=== PATIENT | male | born 1960 | race Caucasian/White ===

== ENCOUNTER → 2025-08-03 13:40 | Outpatient (CLI) | payer OTHER, SELFPAY ==
[2025-08-03 14:40] LABS: Hematocrit 44.5 % (41-53); Hemoglobin 14.9 g/dL (13.5-17.5); Mean Corpuscular HGB Conc 33.5 % (30-36); Mean Corpuscular Hemoglobin 31.8 PG (26-34); Mean Corpuscular Volume 94.8 fL (80-100); Platelet Count 211 X10^3/uL (150-400)
[2025-08-03 15:00] LABS: Alanine Aminotransferase 23 IU/L (<50); Albumin 4.5 g/dL (3.5-5.0); Albumin Globulin Ratio 1.5 (1.0-2.8); Alkaline Phosphatase 63 U/L (38-126); Blood Urea Nitrogen 12 mg/dL (9-20); Calcium 9.1 mg/dL (8.4-10.2); Carbon Dioxide 23 mmol/L (22-32); Chloride 103 mmol/L (98-107); Cholesterol 244 mg/dL (140-199); Estimated Glomerular Filt Rate > 60 mL/min (>60); Globulin 3.0 g/dL (1.7-4.1); Glucose 86 mg/dL (70-99); HDL Cholesterol 86 mg/dL (40-60); HEMOLYSIS < 15 (0-50); Potassium 4.4 mmol/L (3.4-5.1); Sodium 135 mmol/L (137-145); Total Protein 7.5 g/dL (6.3-8.2); Triglycerides 86 mg/dL (35-150)
[2025-08-03 20:49] LABS: HIV 1 & 2 Ab/Ag 4th Gen Combo NEGATIVE (NEGATIVE); Hep C Virus Ab w/Reflex Quant NEGATIVE s/c (NEGATIVE)
== END ==
PROVIDERS: PCP Family Medicine; Referring Provider Family Medicine; Visit Provider Family Medicine
DX: Z00.00 Encounter for general adult medical examination without abnormal findings (principal); Z13.220 Encounter for screening for lipoid disorders; Z82.49 Family history of ischemic heart disease and other diseases of the circulatory system; Z11.59 Encounter for screening for other viral diseases; E87.8 Other disorders of electrolyte and fluid balance, not elsewhere classified; Z11.4 Encounter for screening for human immunodeficiency virus [HIV]; Z12.5 Encounter for screening for malignant neoplasm of prostate
CPT/HCPCS: 36415; 80053; 80061; 82172; 83695; 85027; 86803; 87389; G0103

== ENCOUNTER 2025-10-17 06:28 | Day surgery (SDC) | payer OTHER, SELFPAY ==
[2025-10-10 10:56] VITALS: BMI 26.8
[2025-10-17] VITALS (8 sets, daily range): BP systolic 122–138; BP diastolic 63–90; PULSE 73–88; RESP 13–18; TEMP 36.1–36.5; O2SAT 94–96
--- NOTE | 2025-10-17 06:34 | P.HP_ITS ---
History of Present Illness History of Present Illness Date Patient Seen: 10/17/25 Chief complaint: Hernia Repair Narrative: Patient presents for ventral hernia repair today. [facility] Family History (Updated 08/03/25 @ 08:41 by Billy Kuhn MD) Father Heart attack Heart disease Grandfather Heart disease Social History marital status: household members: spouse lives independently: Yes Smoking Status: Never smoker alcohol intake: current (6-8 weekly) substance use type: does not use Meds Home Medications and Allergies Home Medications ?Medication ?Instructions ?Recorded ?Confirmed ?Type tadalafil 10 mg tablet 10 mg PO DAILY PRN sexual ac tivity 08/03/25 08/21/25 Rx #30 tabs Allergies Allergy/AdvReac Type Severity Reaction Status Date / Time No Known Drug Allergies Allergy Verified 08/21/25 08:17 Exam Narrative Exam Narrative: Const General: healthy appearing, comfortable and no acute distress Orientation: alert and oriented x3 HENMT Ears: hearing grossly normal bilaterally Eyes Visual Santiago: normal visual santiago by confrontation Conjunctivae: conjunctivae normal Sclera: sclerae normal EOM: EOM intact bilaterally Resp Effort & Inspection: normal respiratory effort and able to speak in complete sentences Cardio Rate: regular rate GI Palpation: soft (NT), supra-umbilical bulge Extrem General: no pedal edema and no calf tenderness Assessment & Plan Assessment and plan (1) Ventral hernia without obstruction or gangrene: Status: Acute Plan Plan ventral hernia repair, possible mesh. The risks, benefits and options regarding the procedure were explained to the patient in detail. Risk discussion included but not limited to: bleeding, infection, recurrence. The patient was encouraged to ask questions and they were answered to their satisfaction. The pa tient understands and is agreeable to proceed. Time-Based Coding :: [TOTAL MINUTES] spent with patient and on the chart (including review of chart, obtaining history, exam, reviewing outside data, placing orders, documenting exam and treatment plan, and counseling patient) on [DATE]. PROFEE Psychodramatist Document charge(s): Yes Charge Codes Inpatient/observation care including admit and discharge same day: [id number]
[2025-10-17] MEDS: ACETAMINOPHEN 325 MG TABLET 975 MG PO (07:05)
[2025-10-17] MEDS: LACTATED RINGERS 1,000 ML 42 ML IV (07:05)
--- NOTE | 2025-10-17 07:20 | SUR.OPER ---
Supine on padded OR bed, head on pillow, arms secured on padded arm boards at <90 degrees abduction, legs uncrossed, safety belt at thigh, tape over blanket over lower legs. Provider approved final positioning
--- NOTE | 2025-10-17 08:44 | PM.OP.1 ---
Operative Date/Time/Diagnoses Date of procedure: 10/17/25 Time of procedure: 08:44 Pre-op diagnosis: Ventral hernia Post-op diagnosis: same Procedure & Clinicians Procedure: Ventral hernia repair with mesh Same procedure(s) as scheduled: Yes Indications: 65yo M, symptomatic ventral hernia Surgeon: Vic Moseley Assisted?: Yes Offset Press Operator: Donn Santacruz Anesthesia Type: General Operative Notes Findings: Ventral hernia above umbilicus, tiny umbilical hernia, two fascial defects joined and repaired as one with mesh, 3cm fascial defect Closure Type: primary Specimen(s): other Prosthetic devices, grafts, tissues, transplants, or devices: mesh Applied: other (mesh) Estimated Blood Loss (mL): 5 Blood products transfused: none Procedure in detail: After informed consent and satisfactory general endotracheal anesthesia, the abdomen was shaved, prepped and draped in the usual sterile manner. Surgical time-out was performed with all team members in agreement. The patient received appropriate preoperative antibiotics and DVT prophylaxis. A curvilinear incision was made at the inferior rim of the umbilicus after infiltrating the skin and subcutaneous tissues with 0.5% Marcaine with epinephrine, a total of 30 cc was used. The remainder was injected into the musculature at the end of the procedure. A 15 blade was used to make the incision and this was continued through the skin and subcutaneous tissues with cautery. We mobilized the umbilical dermis off of the fascia and the patient was noted to also have a tiny umbilical hernia defect. The main hernia was a ventral hernia above the umbilicus in the midline. Both defects contained preperitoneal fat. The defects were connected by incising the fascia between the 2 defects in the midline. The resulting defect measured 3 cm. I elected to use mesh to minimize the risk for recurrence. We selected an [address] [place] patch. This was placed as an intraperitoneal onlay mesh patch. The fascia was closed with 0 Ethibond interrupted suture incorporating the strap into the closure to prevent migration of the patch. This closed the defect nicely with good overlap. I probed the fascia with a Chanda clamp and there were no identifiable fascial defects. The remainder of the local anesthetic was injected into the musculature for postoperative analgesia. The umbilicus was reattached to the fascia with 3-0 Vicryl interrupted suture x2. The skin incision was closed using 4-0 Monocryl in a subcuticular manner. The estimated blood loss was minimal. Dermabond glue was applied as a final dressing. The instrument, sponge and needle counts were all correct x2. The patient tolerated the procedure well and was transported to the recovery area in stable condition after reversal of general anesthesia. Complications: none Post-operative Condition: stable Disposition: PACU Plan for aftercare: PACU then home
== END 2025-10-17 09:28 | disposition home or self-care (01) ==
PROVIDERS: PCP Family Medicine; Referring Provider Surgery; Visit Provider Surgery
PROC: (CPT 49593; principal; 2025-10-17 07:45)
DX: K43.9 Ventral hernia without obstruction or gangrene (principal); K42.9 Umbilical hernia without obstruction or gangrene
CPT/HCPCS: 49593; C1781; J0689; J1100; J1171; J2405; J2704; J3010; J3490; J7120